=== PATIENT | male | born 2000 | race Caucasian/White ===

== ENCOUNTER 2023-02-18 17:10 | Emergency (ER) | payer MEDICAID, SELFPAY | END 2023-02-18 18:45 | disposition home or self-care (01) | LOC: CSHERS 17:10 | DX: Z76.0 Encounter for issue of repeat prescription (principal); E10.9 Type 1 diabetes mellitus without complications; F17.290 Nicotine dependence, other tobacco product, uncomplicated | CPT/HCPCS: 36416; 99284 ==